=== PATIENT | female | born 1975 | race African-American/Black ===

== ENCOUNTER 2016-08-10 23:29 | Inpatient (IN) | payer MEDICAID ==
[~2016-08-10] VITALS: Ht 167.6 cm; Wt 110.2 kg
[2016-08-10] MEDS ORDERED: SODIUM CHLORIDE 0.9% 1,000 ML IV ONE (23:54)
[2016-08-11] VITALS (22 sets, daily range): BP systolic 118–150; BP diastolic 0–90
[2016-08-11] MEDS ORDERED: ONDANSETRON HCL 4MG/2ML VIAL IV ONE
[2016-08-11 00:24] LABS: BASOPHILS % 0.3 % (0.0-2.0); EOSINOPHILS % 0.3 % (0.0-5.0); LYMPHOCYTES % 19.5 % (20.0-50.0); MEAN CORPUSCULAR HEMOGLOBIN 17.2 pg (28.0-32.0); MEAN PLATELET VOLUME 7.8 fl (7.4-10.4); MONOCYTES % 4.7 % (2.0-8.0); NEUTROPHILS % 75.2 % (40.0-76.0); PLATELET 217 x1000/uL (130-400); RED BLOOD CELL COUNT 2.97 mill/uL (4.2-5.4); RED CELL DISTRIBUTION WIDTH 19.5 % (11.6-14.6)
[2016-08-11 00:29] LABS: HEMOGLOBIN. 5.1 g/dL (12.0-16.0)
[2016-08-11 00:30] LABS: HEMATOCRIT. 18.1 % (36.0-48.0)
[2016-08-11 00:36] LABS: D-DIMER 2.31 mg/L FEU (<0.50); INR 1.1; PROTHROMBIN TIME 11.2 sec
[2016-08-11 00:41] LABS: HCG SCREEN NEGATIVE
[2016-08-11 00:42] LABS: CARBON DIOXIDE 23 mEq/L (21-32); CHLORIDE 108 mEq/L (98-107); TROPONIN I < 0.02 ng/mL (0.00-0.04)
[2016-08-11 00:52] LABS: PLATELET ESTIMATE NORMAL
[2016-08-11 01:00] LABS: CLARITY URINE TURBID (CLEAR); COLOR URINE YELLOW (YELLOW); GLUCOSE URINE NEGATIVE (NEGATIVE); KETONES URINE NEGATIVE (NEGATIVE); LEUKOCYTE ESTERASE URINE 3+ (NEGATIVE); NITRITE URINE POSITIVE (NEGATIVE); OCCULT BLOOD URINE 2+ (NEGATIVE); PH URINE 5.5 (4.5-8.0); PROTEIN URINE 2+ (NEGATIVE); SPECIFIC GRAVITY URINE 1.021 (1.005-1.030)
[2016-08-11] MEDS ORDERED: SODIUM CHLORIDE 0.9% 1000ML BAG (SEPSIS BOLUS) IV ONE (01:00)
[2016-08-11] MEDS ORDERED: CEFTRIAXONE 1 G PREMIX 50 ML IV ONE (01:15)
[2016-08-11] MEDS ORDERED: ENOXAPARIN 80MG/0.8ML SYR SUBCUT ONE (02:45)
[2016-08-11] MEDS ORDERED: HYDROCODONE/ACETAMINOPHEN 5/325MG TABLET PO PRN (05:45)
[2016-08-11 07:47] LABS: *AMPHETAMINES SCREEN URINE NEGATIVE (NEGATIVE); *BARBITURATES SCREEN URINE NEGATIVE (NEGATIVE); *BENZODIAZEPINES SCREEN URINE NEGATIVE (NEGATIVE); *COCAINE SCREEN URINE NEGATIVE (NEGATIVE); CANNABINOID URINE SCREEN NEGATIVE (NEGATIVE); METHADONE URINE SCREEN NEGATIVE (NEGATIVE); OPIATES URINE SCREEN NEGATIVE (NEGATIVE); PHENCYCLIDINE URINE SCREEN NEGATIVE (NEGATIVE)
[2016-08-11] MEDS: ENOXAPARIN 80MG/0.8ML SYR SUBCUT SCH ×2 (11:00→23:00)
[2016-08-11] MEDS ORDERED: SODIUM CHLORIDE 0.9% 10ML VIAL ONE (11:57)
[2016-08-11] MEDS ORDERED: IOHEXOL-350 100 ML BOTTLE ONE (11:57)
[2016-08-11 12:20] LABS: CREATINE KINASE 29 IU/L (26-192); CREATINE KINASE MB FRACTION 0.6 ng/mL (0.5-3.6); HDL CHOLESTEROL 28 mg/dL (40-59); LDL CHOLESTEROL 45 mg/dL (5-100); TROPONIN I < 0.02 ng/mL (0.00-0.04)
[2016-08-11 12:44] LABS: HEMATOCRIT 20.7 % (36.0-48.0); HEMOGLOBIN 6.4 g/dL (12.0-16.0)
[2016-08-11] MEDS: IRON SUCROSE COMPLEX 100 MG/5 ML ML IV SCH (13:59)
[2016-08-12] VITALS (11 sets, daily range): BP systolic 121–144; BP diastolic 77–100
[2016-08-12] MEDS: CEFTRIAXONE 1 G PREMIX 50 ML IV SCH (03:03)
[2016-08-12 04:27] LABS: BASOPHILS % 0.5 % (0.0-2.0); EOSINOPHILS % 1.2 % (0.0-5.0); HEMATOCRIT. 26.8 % (36.0-48.0); HEMOGLOBIN. 8.3 g/dL (12.0-16.0); MEAN CORPUSCULAR HEMOGLOBIN 21.6 pg (28.0-32.0); MEAN CORPUSCULAR VOLUME 69.5 fL (81.0-99.0); MEAN PLATELET VOLUME 8.4 fl (7.4-10.4); MONOCYTES % 5.3 % (2.0-8.0); PLATELET 206 x1000/uL (130-400); RED BLOOD CELL COUNT 3.85 mill/uL (4.2-5.4); RED CELL DISTRIBUTION WIDTH 26.2 % (11.6-14.6)
[2016-08-12 04:47] LABS: CARBON DIOXIDE 25 mEq/L (21-32); CHLORIDE 112 mEq/L (98-107)
[2016-08-12] MEDS: IRON SUCROSE COMPLEX 100 MG/5 ML ML IV SCH (09:24)
[2016-08-12 09:28] LABS: FOLIC ACID (FOLATE) SERUM 4.8 ng/mL (>5.38)
[2016-08-12] MEDS: ENOXAPARIN 80MG/0.8ML SYR SUBCUT SCH (12:10)
[2016-08-12] MEDS ORDERED: RIVAROXABAN 20 MG TABLET PO SCH (17:00)
[2016-08-12] MEDS: RIVAROXABAN 15 MG TABLET PO SCH (18:40)
[2016-08-13] VITALS (13 sets, daily range): BP systolic 126–140; BP diastolic 70–90
[2016-08-13] MEDS: CEFTRIAXONE 1 G PREMIX 50 ML IV SCH (02:09)
[2016-08-13 04:17] LABS: ALPHA FETOPROTEIN TUMOR MARKER 3.6 ng/mL (0.0-8.3); CANCER ANTIGEN 125 9.8 U/mL (0.0-38.1)
[2016-08-13] MEDS: RIVAROXABAN 15 MG TABLET PO SCH ×2 (08:52→18:16)
[2016-08-14] VITALS: BP 117/68
[2016-08-14 02:52] VITALS: BP 117/65
[2016-08-14] MEDS: CEFTRIAXONE 1 G PREMIX 50 ML IV SCH (03:01)
[2016-08-14 04:00] VITALS: BP 125/67
[2016-08-14 06:02] LABS: CARBON DIOXIDE 25 mEq/L (21-32); CHLORIDE 107 mEq/L (98-107)
[2016-08-14 06:59] LABS: BASOPHILS % 0.3 % (0.0-2.0); EOSINOPHILS % 1.1 % (0.0-5.0); HEMOGLOBIN. 8.3 g/dL (12.0-16.0); LYMPHOCYTES % 18.6 % (20.0-50.0); MEAN CORPUSCULAR HEMOGLOBIN 22.2 pg (28.0-32.0); MEAN CORPUSCULAR VOLUME 72.4 fL (81.0-99.0); MEAN PLATELET VOLUME 8.3 fl (7.4-10.4); MONOCYTES % 7.4 % (2.0-8.0); NEUTROPHILS % 72.6 % (40.0-76.0); PLATELET 241 x1000/uL (130-400); RED BLOOD CELL COUNT 3.73 mill/uL (4.2-5.4); RED CELL DISTRIBUTION WIDTH 27.9 % (11.6-14.6)
[2016-08-14 08:12] VITALS: BP 146/84
[2016-08-14] MEDS: RIVAROXABAN 15 MG TABLET PO SCH (09:00)
[2016-08-14] MEDS ORDERED: XAR15 PO (10:33)
[2016-08-14] MEDS ORDERED: RIVA20TA PO (10:33)
[2016-08-14] MEDS ORDERED: LEVO500T15 PO (10:33)
[2016-08-14 10:57] VITALS: BP 146/84
[2016-08-14 13:06] LABS: ANTI-THROMBIN ACTIVITY 79 % (75-135); DRVVT LA 45.6 sec (0.0-47.0); LUPUS ANTICOAG INTERPRETATION Comment: (.); PROTEIN C FUNCTIONAL 62 % (73-180); PTT-LA 49.5 sec (0.0-51.9)
[2016-08-14 14:17] LABS: ANTI-CARDIOLIPIN AB IGA < 9 APL U/mL (0-11); ANTI-CARDIOLIPIN AB IGG < 9 GPL U/mL (0-14); ANTI-CARDIOLIPIN AB IGM < 9 MPL U/mL (0-12)
[2016-08-15 13:09] LABS: HGB A 97.9 % (94.0-98.0); HGB A2 2.1 % (0.7-3.1); HGB SOLUBILITY Negative (Negative)
[2016-08-18] MEDS ORDERED: QUET25TA PO (22:50)
[2016-09-02] MEDS ORDERED: RIVAROXABAN 20 MG TABLET PO SCH (17:00)
== END 2016-08-14 11:55 | disposition home or self-care (01) | DRG 720 ==
LOC: ER 23:29 → 5EST 08-11 01:46 → ENRESERV 08-11 02:31 → 5EST 08-11 05:42
PROVIDERS: ADMIT Internal Medicine; ATTEND Internal Medicine
DX: A41.9 Sepsis, unspecified organism (principal); J96.00 Acute respiratory failure, unspecified whether with hypoxia or hypercapnia; I26.99 Other pulmonary embolism without acute cor pulmonale; I82.432 Acute embolism and thrombosis of left popliteal vein; D68.59 Other primary thrombophilia; E87.2 Acidosis; N39.0 Urinary tract infection, site not specified; D25.9 Leiomyoma of uterus, unspecified; D50.0 Iron deficiency anemia secondary to blood loss (chronic); E66.9 Obesity, unspecified; K80.20 Calculus of gallbladder without cholecystitis without obstruction; N92.0 Excessive and frequent menstruation with regular cycle; Z82.49 Family history of ischemic heart disease and other diseases of the circulatory system; Z83.3 Family history of diabetes mellitus; Z68.39 Body mass index [BMI] 39.0-39.9, adult; Z79.899 Other long term (current) drug therapy
CPT/HCPCS: 36415; 71010; 71275; 76830; 76856; 80048; 80053; 80061; 80305; 81001; 81400; 81403; 81407; 81479; 82105; 82378; 82550; 82553; 82607; 82728; 82746; 83021; 83540; 83550; 83605; 83690; 83880; 84443; 84484; 84703; 85014; 85018; 85025; 85044; 85300; 85303; 85306; 85379; 85610; 85613; 85660; 85730; 85732; 86147; 86304; 86850; 86900; 86920; 87040; 87086; 93005; 93306; 93970; 96361; 96365; 96375; 99291; A4216; J0696; J1650; J2405; J7030; J7040; J7050; P9016; Q9967

== ENCOUNTER 2016-09-19 13:33 | Emergency (ER) | payer MEDICAID ==
[~2016-09-19] VITALS: Ht 167.6 cm; Wt 105.0 kg
[~2016-09-19 13:33] MED LIST: LEVO500T15 PO; QUET25TA PO; RIVA20TA PO; XAR15 PO
[2016-09-19 16:40] LABS: BASOPHILS % 0.7 % (0.0-2.0); EOSINOPHILS % 2.5 % (0.0-5.0); HEMATOCRIT. 28.5 % (36.0-48.0); HEMOGLOBIN. 8.9 g/dL (12.0-16.0); LYMPHOCYTES % 20.8 % (20.0-50.0); MEAN CORPUSCULAR HEMOGLOBIN 29.5 pg (28.0-32.0); MEAN CORPUSCULAR VOLUME 94.2 fL (81.0-99.0); MEAN PLATELET VOLUME 7.4 fl (7.4-10.4); MONOCYTES % 5.6 % (2.0-8.0); NEUTROPHILS % 70.4 % (40.0-76.0); PLATELET 227 x1000/uL (130-400); RED BLOOD CELL COUNT 3.03 mill/uL (4.2-5.4); RED CELL DISTRIBUTION WIDTH 27.2 % (11.6-14.6)
[2016-09-19 16:51] LABS: CARBON DIOXIDE 24 mEq/L (21-32); CHLORIDE 112 mEq/L (98-107); CREATINE KINASE 37 IU/L (26-192)
[2016-09-19 16:58] LABS: PLATELET ESTIMATE NORMAL
[2016-09-19 18:07] VITALS: BP 123/80
== END 2016-09-19 18:13 | disposition home or self-care (01) ==
LOC: ER 15:11
DX: L03.116 Cellulitis of left lower limb (principal); F12.10 Cannabis abuse, uncomplicated; F17.200 Nicotine dependence, unspecified, uncomplicated; D25.9 Leiomyoma of uterus, unspecified; Z86.718 Personal history of other venous thrombosis and embolism; Z79.01 Long term (current) use of anticoagulants
CPT/HCPCS: 36415; 80048; 82550; 85025; 99284